=== PATIENT | female | born 1970 | race Caucasian/White ===

== ENCOUNTER 2016-04-13 18:58 | Emergency (ER) | payer MEDICAID, OTHER ==
[2016-04-13] VITALS (7 sets, daily range): BP systolic 138–182; BP diastolic 66–92; PULSE 81–120; RESP 16–22; TEMP 98–98.5; O2SAT 99–100
[~2016-04-13 18:58] MED LIST: AMLO5TAB22 PO; BENA10 PO; LOVA40TA PO; MOTI25CH PO
[2016-04-13] MEDS ORDERED: LOVA40TA PO (19:24)
[2016-04-13] MEDS ORDERED: AMLO5TAB2 PO (19:24)
[2016-04-13] MEDS ORDERED: BENA20TA PO (19:25)
[2016-04-13] MEDS ORDERED: ASPIRIN 81 MG CHEW TAB PO ONE (19:30)
[2016-04-13] MEDS ORDERED: SODIUM CHLORIDE 0.9% FLUSH 5 ML FLUSH IVF PRN (19:30)
[2016-04-13] MEDS ORDERED: LORazepam 2 MG/ML VIAL IV PUSH ONE (19:30)
--- NOTE | 2016-04-13 19:41 | PD ---
HPI . Chest pain and shortness of breath Chief Complaint: Respiratory Distress Time Seen by Provider: 19:27 Travel History International Travel<30 days: No Contact w/Intl Traveler<30days: No Traveled to known affect area: No History of Present Illness HPI Patient presents with the sudden onset of chest pain, shortness of breath, tingling of her mouth as well as an odd sensation of her hands and feet. PFSH Past Medical History Cardiovascular Problems: Yes High Cholesterol: Yes Diminished Hearing: No Hypertension: Yes Tetanus Vaccination: < 5 Years ?: Not LMP: 03/20/16 Past Surgical History Surgical History: No Previous Surgery Social History Alcohol Use: No Tobacco Use: No Substance Use: No Allergies-Medications (Allergen,Severity, Reaction): Coded Allergies: No Known Allergies (Unverified , 04/13/16) Reported Meds & Prescriptions Reported Meds & Active Scripts Active Reported Benazepril (Benazepril HCl) 20 Mg Tab 20 Mg PO DAILY Lovastatin 40 Mg Tab 40 Mg PO DAILY Amlodipine (Amlodipine Besylate) 5 Mg Tab 5 Mg PO DAILY Review of Systems ROS Limitations: Language Barrier Except as stated in HPI: all other systems reviewed are Neg Cardiovascular: Positive: Chest Pain or Discomfort Respiratory: Positive: Shortness of Breath Neurologic: Positive: Paresthesia Physical Exam Narrative GENERAL: The patient is extremely anxious. So is her son. SKIN: Warm and dry. HEAD: Atraumatic. Normocephalic. EYES: Pupils equal and round. ENT: No nasal bleeding or discharge. Mucous membranes pink and moist. NECK: Trachea midline. Neck is supple. CARDIOVASCULAR: Regular rate and rhythm. Heart sounds are normal. RESPIRATORY: No accessory muscle use. Lungs are clear with full air movement throughout. GASTROINTESTINAL: Abdomen soft, non-tender, nondistended. MUSCULOSKELETAL: No obvious deformities. No edema. NEUROLOGICAL: Awake and alert. No obvious cranial nerve deficits. Motor grossly within normal limits. Normal speech. PSYCHIATRIC: Anxious. Unable to further evaluate because of language issues. Data Data Last Documented VS Vital Signs Date Time Temp Pulse Resp B/P Pulse Ox O2 Delivery O2 Flow Rate FiO2 04/13/16 20:17 98.5 65 16 157/66 100 04/13/16 20:06 Room Air Orders Electrocardiogram (04/13/16 19:27) Basic Metabolic Panel (Bmp) (04/13/16 19:27) Ckmb (Isoenzyme) Profile (04/13/16:) Complete Blood Count With Diff (04/13/16:) Magnesium (Mg) (04/13/16) Troponin I (04/13/16) Chest, Single Ap (04/13/16:) Ecg Monitoring (04/13/16:) Bilateral Bp Monitoring (04/13/16) Iv Access Insert/Monitor (04/13/16) Oximetry (04/13/16) Aspirin Chew (Aspirin Chew) (04/13/16:30) Sodium Chloride 0.9% Flush (Ns Flush) (04/13/16) Lorazepam Inj (Ativan Inj) (04/13/16) CKMB (04/13/16) CKMB% (04/13/16:) Labs Laboratory Tests Test 04/13/16 White Blood Count 7.2 TH/MM3 Red Blood Count 5.01 MIL/MM3 Hemoglobin 12.4 GM/DL Hematocrit 37.3 % Mean Corpuscular Volume 74.4 FL Mean Corpuscular Hemoglobin 24.7 PG Mean Corpuscular Hemoglobin 33.2 % Concent Red Cell Distribution Width 15.1 % Platelet Count 268 TH/MM3 Mean Platelet Volume 9.8 FL Neutrophils (%) (Auto) 33.5 % Lymphocytes (%) (Auto) 49.5 % Monocytes (%) (Auto) 11.4 % Eosinophils (%) (Auto) 4.4 % Basophils (%) (Auto) 1.2 % Neutrophils # (Auto) 2.4 TH/MM3 Lymphocytes # (Auto) 3.6 TH/MM3 Monocytes # (Auto) 0.8 TH/MM3 Eosinophils # (Auto) 0.3 TH/MM3 Basophils # (Auto) 0.1 TH/MM3 CBC Comment AUTO DIFF Differential Comment AUTO DIFF CONFIRMED Platelet Estimate NORMAL Platelet Morphology Comment NORMAL Red Cell Morphology Comment NORMAL Sodium Level 138 MEQ/L Potassium Level 3.6 MEQ/L Chloride Level 104 MEQ/L Carbon Dioxide Level 25.8 MEQ/L Anion Gap 8 MEQ/L Blood Urea Nitrogen 15 MG/DL Creatinine 1.02 MG/DL Estimat Glomerular Filtration 58 ML/MIN Rate Random Glucose 101 MG/DL Calcium Level 8.8 MG/DL Magnesium Level 2.2 MG/DL Total Creatine Kinase 204 U/L Creatine Kinase MB 3.0 NG/ML Creatine Kinase MB % 1.5 % Troponin I LESS THAN 0.02 NG/ML MDM Medical Decision Making Medical Screen Exam Complete: Yes Emergency Medical Condition: Yes Medical Record Reviewed: Yes (past medical history is hypertension) Interpretation(s) EKG shows a sinus rhythm with no acute ischemic changes. Differential Diagnosis Differential diagnosis of chest pain includes but is not limited to musculoskeletal pain, pulmonary embolism, acute coronary syndrome, pneumonia, pleurisy Narrative Course Patient presents with the sudden onset of chest pain, shortness of breath and paresthesias. She is extremely anxious appearing. Ordered a cardiac workup but I have also ordered Ativan. We'll try to limit her visitors as they seem to be exacerbating the situation. CBC & BMP Diagram 04/13/16 19:30 Cardiac enzymes are negative. Last Impressions Chest X-Ray 04/13/161926 Signed Impressions: Service Date/Time: Wednesday, April 13, 2016 19:38 - CONCLUSION: 1. Minimal basilar atelectasis. No effusion or pneumothorax. Leonid Rubio MD The chest x-ray was independently viewed by me. The patient is markedly improved following Ativan. Diagnosis Primary Impression: Chest pain Qualified Code: R07.9 - Chest pain, unspecified type Additional Impressions: Shortness of breath Anxiety Patient Instructions: General Instructions, Panic Attack (ED) Disposition: 01 DISCHARGE HOME Condition: Stable Carmen Ruelas MD Apr 13, 2016 19:41
[2016-04-13 19:56] LABS: AUTOMATED NEUTROPHIL # 2.4 TH/MM3 (1.8-7.7); BASOPHIL # 0.1 TH/MM3 (0-0.2); BASOPHIL % 1.2 % (0.0-2.0); EOSINOPHIL # 0.3 TH/MM3 (0-0.4); EOSINOPHIL % 4.4 % (0.0-4.0); HEMATOCRIT 37.3 % (35.0-46.0); LYMPH % 49.5 % (9.0-44.0); LYMPHOCYTE # 3.6 TH/MM3 (1.0-4.8); MEAN CELL VOLUME 74.4 FL (80.0-100.0); MEAN CORPUSCULAR HEMOGLOBIN 24.7 PG (27.0-34.0); MEAN CORPUSCULAR HGB CONC 33.2 % (32.0-36.0); MONO % 11.4 % (0.0-8.0); NEUT % 33.5 % (16.0-70.0); PLATELET COUNT 268 TH/MM3 (150-450); RED BLOOD COUNT 5.01 MIL/MM3 (4.00-5.30); RED CELL DISTRIBUTION WIDTH 15.1 % (11.6-17.2); WHITE BLOOD COUNT 7.2 TH/MM3 (4.0-11.0)
[2016-04-13 19:59] LABS: HEMO FLAGS AUTO DIFF
--- NOTE | 2016-04-13 20:00 | RADRPT ---
EXAM DATE/TIME: 04/13/2016 19:38 [facility] COMPARISON: No previous studies available for comparison. INDICATIONS : Patient has had trouble swallowing since this morning. She also has felt very dizzy and short of ki th. She feels she cannot swallow the saliva she has in her mouth. MEDICAL HISTORY : Hypertension. SURGICAL HISTORY : None. ENCOUNTER: Initial ACUITY: 1 day PAIN SCORE: 7/10 LOCATION: Bilateral chest FINDINGS: A single view of the chest demonstrates the lungs to be symmetrically aerated without evidence of mas s, infiltrate or effusion. Minimal basilar atelectasis. The cardiomediastinal contours are unremarka ble. Osseous structures are intact. CONCLUSION: 1. Minimal basilar atelectasis. No effusion or pneumothorax. Leonid Rubio MD on April 13, 2016 at 19:58 Board Certified Radiologist. This report was verified electronically.
[2016-04-13 20:17] LABS: ANION GAP 8 MEQ/L (5-15); BICARBONATE 25.8 MEQ/L (21.0-32.0); BLOOD UREA NITROGEN 15 MG/DL (7-18); CHLORIDE 104 MEQ/L (98-107); GLOMERULAR FILTRATION RATE 58 ML/MIN (>89); MAGNESIUM 2.2 MG/DL (1.5-2.5); POTASSIUM 3.6 MEQ/L (3.5-5.1); SODIUM (NA) 138 MEQ/L (136-145)
[2016-04-13 20:21] LABS: CREATINE KINASE 204 U/L (26-192)
[2016-04-13 20:29] LABS: PLATELET ESTIMATE SMEAR NORMAL (NORMAL); PLATELET MORPHOLOGY NORMAL (NORMAL); SCAN/DIFF AUTO DIFF CONFIRMED
--- NOTE | 2016-04-14 14:52 | EKG ---
Date Performed: 04/13/2016 Time Performed: 19:37:41 PTAGE: 46 years EKG: Sinus rhythm POSSIBLE LEFT ATRIAL ENLARGEMENT NONSPECIFIC T-WAVE ABNORMALITY When compared to previous tracing, h eart is faster otherwise no Significant change. BORDERLINE ECG PREVIOUS TRACING : 12/14/2015 00.04 DOCTOR: Driss Bennett Interpretating Date/Time 04/14/2016 15:41:08
== END 2016-04-13 21:36 | disposition home or self-care (01) ==
LOC: NEPC 18:58
DX: R07.9 Chest pain, unspecified (principal); R06.02 Shortness of breath; F41.9 Anxiety disorder, unspecified; R20.2 Paresthesia of skin; R94.31 Abnormal electrocardiogram [ECG] [EKG]; I10 Essential (primary) hypertension; E78.00 Pure hypercholesterolemia, unspecified; Z86.79 Personal history of other diseases of the circulatory system
CPT/HCPCS: 71010; 80048; 82550; 82552; 83735; 84484; 85025; 93005; 96374; 99285; J2060

== ENCOUNTER 2016-04-19 23:51 | Emergency (ER) | payer MEDICAID, OTHER ==
[~2016-04-19] VITALS: Ht 170.2 cm; Wt 95.5 kg
[~2016-04-19 23:51] MED LIST changes: +AMLO5TAB2 PO; -AMLO5TAB22 PO; -BENA10 PO; +BENA20TA PO; -MOTI25CH PO
[2016-04-20 00:19] VITALS: BP 149/83; PULSE 70; RESP 18; TEMP 97.9; O2SAT 100
[2016-04-20 01:06] VITALS: BP 163/78; PULSE 67; RESP 18; TEMP 97.9; O2SAT 100
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
--- NOTE | 2016-04-20 02:19 | RADHPO ---
EXAM DATE/TIME: 04/20/2016 01:58 [facility] COMPARISON: No previous studies available for comparison. INDICATIONS : Headaches for several months. RADIATION DOSE: 59.16 CTDIvol (mGy) MEDICAL HISTORY : Hypertension. SURGICAL HISTORY : None. ENCOUNTER: Initial ACUITY: 2 months PAIN SCALE: 7/10 LOCATION: cranial TECHNIQUE: Multiple contiguous axial images were obtained of the head. Using automated exposure control and adj ustment of the mA and/or kV according to patient size, radiation dose was kept as low as reasonably a chievable to obtain optimal diagnostic quality images. FINDINGS: CEREBRUM: The ventricles are normal for age. No evidence of midline shift, mass lesion, hemorrhage or acute in farction. No extra-axial fluid collections are seen. POSTERIOR FOSSA: The cerebellum and brainstem are intact. The 4th ventricle is midline. The cerebellopontine angle i s unremarkable. EXTRACRANIAL: The visualized portion of the orbits is intact. SKULL: The calvaria is intact. No evidence of skull fracture. CONCLUSION: Normal examination. Tariq Leblanc MD on April 20, 2016 at 2:17 Board Certified Radiologist. This report was verified electronically.
[2016-04-20 02:32] VITALS: BP 145/73; PULSE 73; RESP 16; O2SAT 96
[2016-04-20] MEDS ORDERED: ALPR.5 PO (02:33)
== END 2016-04-20 02:56 | disposition home or self-care (01) ==
LOC: PHED 23:51
DX: F41.9 Anxiety disorder, unspecified (principal); R51 Headache; I10 Essential (primary) hypertension
CPT/HCPCS: 70450